=== PATIENT | female | born 1975 | race African-American/Black ===

== ENCOUNTER 2017-05-29 10:32 | Emergency (ER) | payer OTHER ==
[2017-05-29 10:49] VITALS: BP 106/81; PULSE 105; TEMP 99.3; BMI 33.3
[2017-05-29] MEDS ORDERED: KETOROLAC TROMETHAMINE 30 MG/1 ML VIAL IM ONE (11:15)
[2017-05-29] MEDS ORDERED: PENICILLIN G BENZATHINE 1,200,000 UNIT/2 ML PFS IM ONE (11:15)
[2017-05-29] MEDS ORDERED: DEXAMETHASONE LIQUID 0.5 MG/5 ML 240 ML BULK BOTTLE PO ONE (11:15)
[2017-05-29] MEDS ORDERED: DEXAMETHASONE SOD PHOSPHATE 10 MG/1 ML VIAL ONE (11:22)
[2017-05-29] MEDS ORDERED: KETOROLAC TROMETHAMINE 30 MG/1 ML VIAL ONE (11:22)
[2017-05-29] MEDS ORDERED: PENICILLIN G BENZATHINE 2,400,000 UNIT/4 ML PFS ONE (11:23)
--- NOTE | 2017-05-29 11:24 | PDOC ---
History of Present Illness - General Chief Complaint: Ear Problem Stated Complaint: Body aches, earache Time Seen by Provider: 05/29/17 10:56 History Source: Patient Exam Limitations: No Limitations - History of Present Illness Initial Comments: 05/29/17 11:21 This is a 42-year-old female with past medical history of hypercholesterolemia and prolactinemia presents emergency Department 5 days of headaches, anorexia, fevers, sore throat and focal changes. Patient reports temperature of 101 over the weekend but felt everything would improve so she did not seek out care. Patient noted increased pain in the back of her throat which is not improving all taking [id number] Tylenol. She denies blurry vision, difficult swallowing, nausea, vomiting, abdominal pain, diarrhea. Past History - Past Medical History Allergies/Adverse Reactions: Allergies Allergy/AdvReac Type Severity Reaction Status Date / Time No Known Allergies Allergy Verified 05/29/17 10:47 Home Medications: Ambulatory Orders NK [No Known Home Medication] 05/29/17 Anemia: Yes Asthma: No Cancer: No Cardiac Disorders: No CVA: No COPD: No CHF: No DVT: No Dementia: No Diabetes: No GI Disorders: No Disorders: Yes (FIBROIDS) HTN: No Hypercholesterolemia: Yes Liver Disease: No Seizures: No Thyroid Disease: No - Surgical History Abdominal Surgery: Yes (ECTOPIC AND C SECTION) Appendectomy: No Cardiac Surgery: No Cholecystectomy: No Lung Surgery: No Neurologic Surgery: No Orthopedic Surgery: No - Suicide/Smoking/Psychosocial Hx Smoking Status: No Smoking History: Never smoked Have you smoked in the past 12 months: No Number of Cigarettes Smoked Daily: 0 Information on smoking cessation initiated: No Hx Alcohol Use: No Drug/Substance Use Hx: No Substance Use Type: None Hx Substance Use Treatment: No Review of Systems - Review of Systems Able to Perform ROS?: Yes Is the patient limited Belgian proficient: No Constitutional: Yes: See HPI HEENTM: Yes: See HPI Respiratory: No: Symptoms reported Cardiac (ROS): No: Symptoms Reported ABD/GI: No: Symptoms Reported : No: Symptoms Reported Musculoskeletal: No: Symptoms Reported Integumentary: No: Symptoms Reported Neurological: No: Symptoms reported *Physical Exam - Vital Signs Last Vital Signs Temp Pulse Resp BP Pulse Ox 99.3 F 105 H 18 106/81 100 05/29/17 10:45 05/29/17 10:45 05/29/17 10:45 05/29/17 10:45 05/29/17 10:45 - Physical Exam General Appearance: Yes: Appropriately Dressed. No: Apparent Distress HEENT: positive: TMs Normal, Muffled/Hoarse voice, Pharyngeal Erythema, Tonsillar Exudate, Other (Uvula midline. No edema or swelling noted to the sublingual area.). negative: Tonsillar Erythema Neck: positive: Trachea midline, Lymphadenopathy (R), Lymphadenopathy (L). negative: Stridor, Rigidity Respiratory/Chest: positive: Lungs Clear, Normal Breath Sounds. negative: Respiratory Distress, Accessory Muscle Use Cardiovascular: positive: Regular Rhythm, Regular Rate, S1, S2. negative: Edema , Murmur Gastrointestinal/Abdominal: positive: Normal Bowel Sounds, Soft. negative: Tender Musculoskeletal: positive: Normal Inspection. negative: CVA Tenderness Extremity: positive: Normal Inspection Integumentary: positive: Normal Color, Dry, Warm Neurologic: positive: Alert, Normal Response, Motor Strength 5/5 Medical Decision Making - Medical Decision Making 05/29/17 11:21 CC: Sore throat, headaches and fevers for 5 days A/P: Pharyngeal erythema present. Tonsillar erythema and exudate present. Uvula midline. No sublingual erythema or edema present TMs clear without erythema. Anterior cervical lymphadenopathy with tenderness. Lungs clear to auscultation bilaterally. RRR. S1 and S2 present. No murmur, rub or gallop present. Vital signs notable for heart rate of 105 Streptococcal pharyngitis Total 30 g IM now. Bicillin 1.2 million units IM Decadron 10 mg orally Discharge *DC/Admit/Observation/Transfer Diagnosis at time of Disposition: Acute streptococcal pharyngitis - Discharge Dispostion Disposition: HOME Condition at time of disposition: Stable Admit: No - Referrals Referrals: Amanda Adair MD [Primary Care Provider] - - Patient Instructions Additional Instructions: Salt water garggles. Throw away your toothbrush in 3 days and start using a new toothbrush. No sharing of drinks, utensils or toothbrushes. Take Motrin as directed by programmer's instructions. Return to ED for worsening fevers, worsening sore throat, chest pain, shortness of breath or any other concerns. - Post Discharge Activity Forms/Work/School Notes: Back to Work
== END 2017-05-29 11:59 | disposition home or self-care (01) ==
LOC: JERFT 10:32
PROC: 3E0233Z Introduction of Anti-inflammatory into Muscle, Percutaneous Approach (ICD-10-PCS; principal; 2017-05-29)
PROC: 3E02329 Introduction of Other Anti-infective into Muscle, Percutaneous Approach (ICD-10-PCS; 2017-05-29)
DX: J02.0 Streptococcal pharyngitis (principal)
CPT/HCPCS: 99281-25

== ENCOUNTER 2022-02-09 04:27 | Day surgery (SDC) | payer OTHER ==
[2022-02-07 15:05] VITALS: BMI 38.2
[2022-02-09] MEDS ORDERED: FENTANYL CITRATE/PF 50 MCG/ML VIAL ONE (07:29)
[2022-02-09] MEDS ORDERED: PROPOFOL 20 ML ONE (07:29)
[2022-02-09] MEDS ORDERED: MIDAZOLAM HCL 2 MG/2 ML SINGLE DOSE VIAL ONE ×2 (07:29→08:36)
[2022-02-09] MEDS ORDERED: SUCCINYLCHOLINE CHLORIDE 200 MG/10 ML SYRINGE ONE (07:30)
[2022-02-09] MEDS ORDERED: oxyCODONE HCL 5 MG TABLET PO PRN (07:40)
[2022-02-09] MEDS ORDERED: ONDANSETRON 4 MG/2 ML VIAL IVPUSH PRN (07:40)
[2022-02-09] MEDS ORDERED: LACTATED RINGERS SOLUTION 1,000 ML IV SCH (07:45)
[2022-02-09] MEDS ORDERED: BUPIVACAINE HCL/PF 0.5% (5MG/ML) 10 ML VIAL ONE (07:58)
[2022-02-09] MEDS ORDERED: ceFAZolin SODIUM 1 GM VIAL IVPB ONE (08:30)
[2022-02-09] MEDS ORDERED: ceFAZolin SODIUM 1 GM VIAL ONE (08:36)
[2022-02-09] MEDS ORDERED: FENTANYL CITRATE/PF 50 MCG/ML VIAL IVPUSH PRN (08:39)
[2022-02-09] MEDS ORDERED: LIDOCAINE HCL/EPINEPHRINE/PF 10 ML VIAL NR ONE (08:48)
[2022-02-09] MEDS ORDERED: SUGAMMADEX SODIUM 200 MG/2 ML VIAL ONE (09:42)
[2022-02-09 12:35] VITALS: RESP 18
[2022-02-09] MEDS ORDERED: oxyCODONE HCL 5 MG TABLET ONE (13:24)
[2022-02-09] MEDS ORDERED: LIDOCAINE HCL 5% TOP OINTMENT 50 GM TUBE TP SCH (14:00)
[2022-02-09 14:30] VITALS: BP 140/63; PULSE 64; TEMP 98
== END 2022-02-09 15:30 | disposition home or self-care (01) ==
LOC: JASU-SURG 04:27
PROVIDERS: ATTEND Surgery
PROC: 06BY0ZC Excision of Hemorrhoidal Plexus, Open Approach (ICD-10-PCS; 2022-02-09)
PROC: 0DBQ0ZX Excision of Anus, Open Approach, Diagnostic (ICD-10-PCS; 2022-02-09)
PROC: 0D8R0ZZ Division of Anal Sphincter, Open Approach (ICD-10-PCS; principal; 2022-02-09 08:00)
DX: K64.3 Fourth degree hemorrhoids (principal); K60.2 Anal fissure, unspecified
CPT/HCPCS: 81025; 88304-TC; 88305-TC; 94760

== ENCOUNTER 2022-08-07 08:27 | Emergency (ER) | payer OTHER ==
[2022-08-07 08:40] VITALS: BP 141/84; PULSE 80; RESP 18; TEMP 98.5; BMI 36.2
[2022-08-07] MEDS ORDERED: ACETAMINOPHEN 500 MG TABLET (FP) PO ONE (09:17)
[2022-08-07] MEDS ORDERED: DEXAMETHASONE LIQUID 0.5 MG/5 ML PO ONE (09:17)
[2022-08-07] MEDS ORDERED: ACETAMINOPHEN 500 MG TABLET (FP) ONE (09:18)
[2022-08-07] MEDS ORDERED: DEXAMETHASONE SOD PHOSPHATE 10 MG/1 ML VIAL ONE (09:18)
== END 2022-08-07 09:52 | disposition home or self-care (01) ==
LOC: JER 08:27
DX: J02.0 Streptococcal pharyngitis (principal); R13.10 Dysphagia, unspecified; Z20.822 Contact with and (suspected) exposure to COVID-19
CPT/HCPCS: 0241U-QW; 87651; 99283-25

== ENCOUNTER 2024-01-04 16:27 | Emergency (ER) | payer OTHER ==
[2024-01-04 16:37] VITALS: BP 154/91; PULSE 75; RESP 18; TEMP 98.9; BMI 38.2
[2024-01-04] MEDS ORDERED: IBUPROFEN 400 MG TABLET (FP) PO ONE (17:54)
[2024-01-04] MEDS ORDERED: SULFAMETHOXAZOLE/TRIMETHOPRIM 800MG/160MG D.S. TABLET ONE (17:55)
[2024-01-04] MEDS: SULFAMETHOXAZOLE/TRIMETHOPRIM 800MG/160MG D.S. TABLET PO ONE (17:57)
[2024-01-04] MEDS: IBUPROFEN 400 MG TABLET (FP) PO ONE (17:57)
== END 2024-01-04 18:23 | disposition home or self-care (01) ==
LOC: JER 16:27 → JERFT 16:27
DX: N61.1 Abscess of the breast and nipple (principal)
CPT/HCPCS: 99283-25